=== PATIENT | male | born 1985 | race African-American/Black ===

== ENCOUNTER 2025-07-03 03:47 | Emergency (ER) | payer OTHER ==
[~2025-07-03] VITALS: Ht 175.3 cm; Wt 144.0 kg
[2025-07-03] MEDS: PROPARACAINE 0.5% OPHTH SOL 15ML OD ONE (09:20)
[2025-07-03] MEDS: FLUORESCEIN OPHTH 1 MG STRIP OD ONE (09:20)
[2025-07-03] MEDS ORDERED: CIPR0.3S37 OD (10:47)
[2025-07-03 10:53] VITALS: BP 139/84; TEMP 97.4; O2SAT 100
== END 2025-07-03 10:56 | disposition home or self-care (01) ==
LOC: M ED 03:47
DX: T26.41XA Burn of right eye and adnexa, part unspecified, initial encounter (principal); Z79.2 Long term (current) use of antibiotics; Y92.9 Unspecified place or not applicable; Y93.89 Activity, other specified; Y99.9 Unspecified external cause status